=== PATIENT | male | born 1960 | race Caucasian/White ===

== ENCOUNTER 2017-02-19 07:57 | Day surgery (SDC) | payer OTHER ==
[2017-02-11 12:47] VITALS: BMI 29.9
[2017-02-19] MEDS ORDERED: PROPOFOL 20 ML ONE (09:01)
[2017-02-19] MEDS ORDERED: MIDAZOLAM HCL 2 MG/2 ML SINGLE DOSE VIAL ONE (09:01)
[2017-02-19] MEDS ORDERED: ROPIVACAINE HCL 0.5% 30ML VIAL ONE (09:10)
[2017-02-19] MEDS ORDERED: oxyCODONE HCL 5 MG TABLET PO PRN (10:27)
[2017-02-19] MEDS ORDERED: ONDANSETRON 4 MG/2 ML VIAL IVPUSH PRN (10:27)
[2017-02-19] MEDS ORDERED: LACTATED RINGERS SOLUTION 1,000 ML IV SCH (10:30)
[2017-02-19 11:29] VITALS: BP 121/82; PULSE 81; TEMP 98.6
--- NOTE | 2017-02-24 17:49 | OP ---
DATE OF OPERATION: 02/19/2017 PREOPERATIVE DIAGNOSES: 1. Right wrist triangular fibrocartilage complex tear. 2. 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 POSTOPERATIVE DIAGNOSES: 1. Right wrist triangular fibrocartilage complex tear. 2. 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 OPERATIVE PROCEDURE: Right wrist operative arthroscopy with debridement of triangular fibrocartilage complex tear. SURGEON: Song Larkin MD MEDICAL RECORD CLERK: YARELIS Mariscal ANESTHESIA: General. COMPLICATIONS: None. ESTIMATED BLOOD LOSS: Minimal. INDICATION FOR PROCEDURE: The patient is a 56-year-old male with the above finding indicated for operative treatment. Risks, benefits, and alternatives were discussed with the patient at length. Proper informed consent was obtained. DESCRIPTION OF PROCEDURE: After proper identification of the patient and the correct operative site, patient was brought to the operating room and placed supine on the operating table. All prominences were well padded. General anesthesia was provided by the anesthesiologist adequate for the procedure. Right upper extremity was prepped and draped in the usual sterile fashion. A well-padded tourniquet was placed as well as a sterile prep. Esmarch bandage to exsanguinate the right upper extremity. Tourniquet was inflated to 250 mmHg. Next, 3-4 and 4-5 portals were established with skin incision only and blunt dissection down to the joint capsule. Ten-pound in-line arthroscopy tower was used with 4 points of contact well padded. Radiocarpal tunnel was observed and found to have moderate synovitis in the radial aspect of the wrist which was debrided with a mechanical shaver. 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 The scaphoid had intact cartilage. The scapholunate ligament was found to be ruptured, and the ligament was debrided. The lunate articular surface was intact as was the distal radial articular surface and lunate facet. Volar radiocarpal ligaments were intact. TFCC had a central tear which was debrided with mechanical shaver. Synovitis was also debrided from this area. Partial lunotriquetral tear was also noted, and this was debrided with mechanical shaver. The wound was irrigated with saline and repaired with a 5-0 nylon suture. Sterile dressings were applied. YARELIS Mariscal, the assistant technician, was integral throughout the procedure. Procedure could not have been performed without a skilled operative assistant technician. Ron [id number]
== END 2017-02-19 11:30 | disposition home or self-care (01) ==
LOC: FASU 07:57
PROVIDERS: ATTEND Orthopaedic Surgery Hand Surgery
PROC: 0MQ54ZZ Repair Right Wrist Bursa and Ligament, Percutaneous Endoscopic Approach (ICD-10-PCS; principal; 2017-02-19 09:45)
DX: S63.591A Other specified sprain of right wrist, initial encounter (principal); S63.511A Sprain of carpal joint of right wrist, initial encounter; M19.031 Primary osteoarthritis, right wrist; X58.XXXA Exposure to other specified factors, initial encounter; Y93.9 Activity, unspecified; Y92.9 Unspecified place or not applicable
CPT/HCPCS: 94760